=== PATIENT | male | born 1960 | race African-American/Black ===

== ENCOUNTER 2019-02-22 17:11 | Emergency (ER) | payer OTHER ==
[~2019-02-22] VITALS: Ht 172.7 cm; Wt 108.9 kg
[2019-02-22] MEDS ORDERED: ACETAMINOPHEN 500 MG TAB PO ONE ×2 (17:54→18:00)
[2019-02-22] MEDS ORDERED: SODIUM CHLORIDE 0.9% 500 ML IV ONE (19:05)
[2019-02-22] MEDS ORDERED: ETOMIDATE (2MG/ML) 20ML VIAL IV ONE (19:15)
[2019-02-22] MEDS ORDERED: HYDROcodone-ACET 10/325MG TAB PO ONE (20:30)
[2019-02-22] MEDS ORDERED: cloNIDine HCL 0.1 MG TAB PO ONE (20:45)
[2019-02-22 22:14] VITALS: BP 178/111
== END 2019-02-22 22:15 | disposition home or self-care (01) ==
LOC: ER 17:22
DX: S43.004A Unspecified dislocation of right shoulder joint, initial encounter (principal); I10 Essential (primary) hypertension; Z88.0 Allergy status to penicillin; W01.0XXA Fall on same level from slipping, tripping and stumbling without subsequent striking against object, initial encounter; Y93.89 Activity, other specified; Y99.8 Other external cause status; Y92.89 Other specified places as the place of occurrence of the external cause
CPT/HCPCS: 23650; 73020; 73030; 99152; 99285; J7030